=== PATIENT | male | born 1980 | race Caucasian/White ===

== ENCOUNTER → 2016-07-18 | Outpatient (CLI) | payer OTHER ==
--- NOTE | 2016-07-18 10:07 | KCIC ---
PROCEDURE Chest, two views. HISTORY Asthma. FINDINGS Frontal and lateral views of the chest are obtained. There is no infiltrate, effusion or pneumothorax. The heart is normal in size. IMPRESSION No acute pulmonary finding. Electronically signed by: Abimbola Marx (Jul 18, 2016 10:05:56)
== END | disposition home or self-care (01) ==
LOC: KCIC 09:19
PROVIDERS: ATTEND Physician Assistant Medical
DX: J45.31 Mild persistent asthma with (acute) exacerbation (principal); R05 Cough; R06.02 Shortness of breath
CPT/HCPCS: 71020

== ENCOUNTER → 2016-11-27 | Outpatient (CLI) | payer OTHER ==
--- NOTE | 2016-11-27 11:47 | KCIC ---
LUMBAR SPINE MIN 4V History: Acute midline low back pain without sciatica for 10 days Comparison: February 03, 2014 Findings: 5 views of lumbar spine are submitted. Lumbar vertebral body stature is preserved. AP alignment is similar, negligible posterior subluxation L4 relative to L5. Intervertebral disc spaces are mostly maintained, mild narrowing at L4-5. There may be bilateral L5 spondylolysis poorly demonstrated by radiographs. Impression: 1. There is mild degenerative disc disease and spondylosis L4-5, minimal posterior subluxation L4 relative to L5. There may be bilateral L5 spondylolysis poorly demonstrated by radiographs. Electronically signed by: Chaz Catherine MD (11/27/2016 11:43 AM)
== END | disposition home or self-care (01) ==
LOC: KCIC 10:26
PROVIDERS: ATTEND Physician Assistant
DX: M51.36 Other intervertebral disc degeneration, lumbar region (principal)
CPT/HCPCS: 72110

== ENCOUNTER → 2016-11-30 | Outpatient (CLI) | payer OTHER ==
[~2016-11-30] MED LIST: GADOBUTROL 10 MMOL/10 ML VIAL IV ONE
--- NOTE | 2016-11-30 10:03 | RAD ---
INDICATION: Low back pain and bilateral leg weakness. L4-L5 laminectomy and microdiscectomy 2 years ago. TECHNIQUE: Sagittal T1, sagittal T2, sagittal STIR, sagittal postcontrast, axial T1, axial T2, and axial postcontrast sequences are provided. 10 mL of intravenous Gadavist was administered without complication. Comparison is from May 04, 2015. FINDINGS: There is no malalignment. There is no worrisome marrow lesion. There is endplate edema which is mild at L4-L5. There is disc desiccation from L2-L3 through L4-L5. There is mild narrowing of disc height at L4-L5. The conus medullaris is normal in signal intensity and in position. Degenerative findings of individual level are as follows: L1-L2: There is no canal or foraminal compromise. L2-L3: There is a stable disc bulge and shallow central protrusion with annular fissure. There is no canal or foraminal compromise. L3-L4: There is a disc bulge and new central protrusion measuring 20 mm at its base and measuring 4 to 5 mm in height. There is an associated annular fissure. There is no canal stenosis, midline AP diameter of the thecal sac still 15 mm. There is slight contact with the left L4 nonexiting nerve root. There is minimal foraminal narrowing. L4-L5: There is evidence of partial laminectomy and microdiscectomy on the right. There is a disc bulge. There is enhancement of the annulus. There is no evidence of a residual or recurrent herniation. There is enhancing granulation tissue surrounding the right L5 nerve root. There is facet hypertrophy. There is mild right foraminal narrowing. L5-S1: Minimal disc bulge is noted without canal or foraminal compromise. IMPRESSION: 1. New central herniation at L3-L4, although without significant canal stenosis. There is minimal contact with the left L4 nerve root. 2. Microdiscectomy at L4-L5. There is a residual disc bulge and enhancement of the annulus but no large residual herniation. There is enhancing granulation tissue surrounding the right L5 nerve root. Electronically signed by: Erick Casanova MD (11/30/2016 9:59 AM)
== END | disposition home or self-care (01) ==
LOC: MRI 08:32
PROVIDERS: ATTEND Physician Assistant
DX: M51.26 Other intervertebral disc displacement, lumbar region (principal); Z98.890 Other specified postprocedural states
CPT/HCPCS: 72158; A9585

== ENCOUNTER → 2021-09-21 | Outpatient (CLI) | payer OTHER ==
--- NOTE | 2021-09-21 17:04 | KCIC ---
US ABDOMEN LIMITED History: Reason: COLICKY RUQ PAIN / Spl. Instructions: / History: Comparison: None. Technique: Transabdominal ultrasound images are obtained of the right upper quadrant. Findings: Liver is increased in echogenicity. Right hepatic lobe measures 16.2 cm. Portal flow is hepatopedal. No cholelithiasis, gallbladder wall thickening or pericholecystic fluid. Common bile duct measures 3 mm in diameter. Visualized pancreas not well seen due to overlying bowel gas. The right kidney measures 10.2 x 5.3 x 6.3 cm. No hydronephrosis. Hypoechoic peripelvic lesion measur es 2.1 x 1.9 x 2.0 cm. Visualized portions of the aorta and IVC have normal caliber. IMPRESSION: 1. Hypoechoic right parapelvic renal lesion, may represent complicated cyst. Recommend ultrasound fo llow-up. 2. Increased hepatic echotexture, may indicate steatosis. Electronically signed by: Bernardo Garduno DO (09/21/2021 5:01 PM) [id number]
== END ==
LOC: KCIC US 12:29
PROVIDERS: ATTEND Physician Assistant Medical
DX: N28.89 Other specified disorders of kidney and ureter (principal)
CPT/HCPCS: 76705